=== PATIENT | male | born 1970 | race Caucasian/White ===

== ENCOUNTER 2024-12-17 07:13 | Day surgery (SDC) | payer OTHER, SELFPAY ==
[2024-12-17] VITALS (17 sets, daily range): BP systolic 108–133; BP diastolic 67–91; PULSE 79–108; RESP 14–16; TEMP 36.1–36.2; O2SAT 93–97; BMI 32.5
--- NOTE | 2024-12-17 08:08 | W.PM.H&PU ---
History & Physical Update History & Physical Update H&P Reviewed and patient assessed: No changes noted
[2024-12-17] MEDS: SODIUM CHLORIDE 0.9 % (FLUSH) 10 ML SYRINGE IVF (08:17)
[2024-12-17] MEDS: LACTATED RINGERS 1000 ML 1,000 ML 100 ML IV (08:20)
[2024-12-17] MEDS: fentaNYL 100 MCG/2 ML inj IVP (08:21)
[2024-12-17] MEDS: MIDAZOLAM HCL 1 MG/ML inj IVP (08:21)
--- NOTE | 2024-12-17 08:22 | SUR.PREOP ---
TIME?OUT:?0821 PT/RN/MDA?VERIFICATION?OF?SURGICAL?SITE,?PROCEDURE,?AND?CONSENT OBTAINED?PRIOR?TO?INVASIVE?PROCEDURE.
--- NOTE | 2024-12-17 08:31 | P.NB_ITS ---
Nerve Block Nerve Block Time Seen by Provider: 08:24 Date Seen: 12/17/24 Type of block requested by surgeon for post-operative analgesia: supraclavicular Side: right Time out performed: Yes Verification of patient name: Yes Verification of date of : Yes Site marking: site marked Name of person performing procedure: Alexandro Continuous monitoring Was continuous monitoring of O2 sat, B/P, air sampling and monitoring, recorded every 15 minutes?: Yes Procedure Checklist: sterile prep, needles and gloves Ultrasound guided. Images saved: Yes Medications given in 5ml increments after negative aspiration: Ropivicaine %: 0.5 mL: 20 Needle gauge: 22 Precedex (mcg): 25 Patient tolerated procedure well: Yes Block Charges Block Charge (with Pro Fee): Brachial Plexus Use of Ultrasound Machine for Block: Yes- US Guidance/pain block
--- NOTE | 2024-12-17 08:35 | W.ANESCHARGE ---
Anesthesia Charges Start Date/Time Anesthesia Start Date: 12/17/24 Anesthesia Start Time: 08:47 Stop Date/Time Anesthesia Stop Date: 12/17/24 Anesthesia Stop Time: 10:20 Coding CPT Codes CPT Codes: ANESTH SURGERY OF SHOULDER - 76429 ([id number]) P2 - PATIENT W/MILD SYST DISEASE, QK - LABORER BRUSH CLEARING 2-4 CNCRNT ANES PROC, QX - LEAD PROGRAMMER ANALYST SVC W/ MD MED DIRECTION
--- NOTE | 2024-12-17 08:35 | P.ANES_ITS ---
Anesthesia Charges Start Date/Time Anesthesia Start Date: 12/17/24 Anesthesia Start Time: 08:47 Stop Date/Time Anesthesia Stop Date: 12/17/24 Anesthesia Stop Time: 10:20 Coding CPT Codes CPT Codes: ANESTH SURGERY OF SHOULDER - 95751 ([id number]) P2 - PATIENT W/MILD SYST DISEASE, QK - CNC LATHE PROGRAMMER 2-4 CNCRNT ANES PROC, QX - RUBBER TESTER SVC W/ MD MED DIRECTION
[2024-12-17] MEDS: CEFAZOLIN 1 GM inj IVP (09:18)
[2024-12-17] MEDS: EPINEPHrine 1 MG in SODIUM CHLORIDE IRRIG SOLUTION 3,000 ML 3001 MG IRRIGATION ×4 (09:24→09:54)
--- NOTE | 2024-12-17 09:35 | SUR.OPER ---
PATIENT QUESTIONS ANSWERED SATISFACTORILY PREOPERATIVELY. PATIENT BROUGHT TO OR #2 PER CART FOLLOWING THE BLOCK. Patient positioned supine on OR #2 bed for the intubation.? Perioperative team wrapped the left arm in a neutral position on the pt. abdomen with the drawsheet. Right arm elevated on an IV pole in a padded strap. Final approval of positioning by surgeon. CONTINUOUS IRRIGATION OF THE RIGHT SHOULDER WITH MIXTURE OF 3000 NACL AND 1mg OF EPINEPHRINE DURING PROCEDURE.
--- NOTE | 2024-12-17 10:24 | PM.ORPRC ---
Procedure Note Date of procedure: 12/17/24 Procedure: PREOPERATIVE DIAGNOSES: 1. Right shoulder rotator cuff tear. 2. Right shoulder anterior and superior labral tearing POSTOPERATIVE DIAGNOSES: 1. Right shoulder rotator cuff tear. 2. Right shoulder anterior and superior labral tearing NAME OF OPERATION: 1. Right shoulder arthroscopic rotator cuff repair. 2. Right shoulder arthroscopic limited glenohumeral debridement SURGEON: Prem Nagel MD CABLE SPOOLER: Kirk Nugent PA-C. Of note, a skilled loan officer assistant was critical for this case to aide in patient positioning, suture manipulation, arm positioning, instrument positioning, and closure. ANESTHESIA: General plus preoperative supraclavicular block. EBL: 25 mL IMPLANTS: Arthrex 4.75 mm BioComposite SwiveLock suture anchor (x2) COMPLICATIONS: None evident INDICATIONS: The patient is a pleasant, 54-year-old male who has experienced right shoulder pain that has been increasing in recent time. Physical exam and imaging were consistent with a rotator cuff tear. Given their findings, as well as the weakness and pain, and inadequate response to nonoperative management, recommendation was made for surgery. FINDINGS: Exam under anesthesia revealed stable shoulder with excellent range of motion. The diagnostic arthroscopy revealed healthy chondral surfaces of the glenohumeral joint. The Subscapularis tendon was intact and with a healthy attachment. The long head of the biceps tendon was intact. The superior rotator cuff tendon was found to be torn and high-grade partial-thickness manner as a blunt probe easily penetrated through the bursal side of the rotator cuff/supraspinatus. The labrum was degeneratively frayed in the anterior and superior aspects. No loose bodies were identified within the pouch or subscapularis recess. PROCEDURE: Following a thorough discussion of risks, benefits, and alternatives, consent was obtained and the right shoulder was marked. The patient was brought to the operating room and placed supine on the operating table. Induction of anesthesia was completed after preoperative supraclavicular block was administered in preop holding. Appropriate time out was performed identifying proper patient, site, and procedure. 2 g IV Ancef was administered within 1 hour of incision preoperatively. The right upper extremity was prepped and draped in the appropriate sterile fashion using ChloraPrep prep. This was after the patient was positioned in the beach chair with their head in neutral alignment and all bony prominences well padded. The shoulder was insufflated with 20mL of normal saline via an 18g spinal needle from a posterior approach. An 11 blade skin incision allowed a blunt trochar to be inserted and diagnostic arthroscopy to be performed with the findings as noted above. An anterior portal was established with an outside in technique. This allowed the probe to be inserted and confirm the diagnostic arthroscopic findings. The shaver was then inserted and allowed debridement of the anterior and superior labrum. Following this, the upper border subscapularis was probed and found to be stable Thereafter, the subacromial space was entered. Here, [a complete bursectomy was performed with a combination of radiofrequency ablator and the shaver. Further inspection of the supraspinatus and infraspinatus rotator cuff was performed. This identified the tear as noted above. The margins of the tear were debrided, and the greater tuberosity was debrided with a combination of the apollo cautery, shaver, and bur on reverse setting. . After gentle decortication, single FiberTape suture was passed in a horizontal mattress fashion with the scorpion needle. Additionally, the eyelet sutures were passed independently allowing 4 tails to be passed through the rotator cuff tissue. It was brought to a single anchor further laterally. The rotator cuff showed excellent reapproximation of the greater tuberosity with good security upon probing. Prior to anchor water taxi driver removal, the eyelet sutures were tugged on for each anchor and found that the anchor had excellent stability within the bone. The shoulder was placed through range of motion and found to be stable. The rotator cuff was re-probed and found to be stable. Instruments were removed. Excess fluid was drained, closure performed with 4-0 Monocryl and Steri-Strips. Dressings were applied. Sling was applied. The patient was awoken from anesthesia and transferred to the PACU in stable condition. A skilled loan officer assistant was critical for this case to aid in patient positioning, limb positioning, skill to manipulate arthroscopic instruments and camera, suture management, patient safety, and closure. PLAN: 1. Elbow, forearm, wrist and digit range of motion as tolerated. 2. Encouraged ice. 3. Dilaudid for pain as needed. 4. Sling at all times except for ROM and showering. 5. Follow up with PA visit in 1-2 weeks for wound check. Initiate physical therapy following that visit for passive range of motion. Initiate active assisted range of motion at 2-3 weeks. May do pendulums now.
--- NOTE | 2024-12-17 10:29 | P.ANES_ITS ---
Anesthesia Charges Start Date/Time Anesthesia Start Date: 12/17/24 Anesthesia Start Time: 08:47 Stop Date/Time Anesthesia Stop Date: 12/17/24 Anesthesia Stop Time: 10:20 Coding CPT Codes CPT Codes: ANESTH SURGERY OF SHOULDER - 31657 ([id number]) P2 - PATIENT W/MILD SYST DISEASE, QK - PROPERTY UTILIZATION MANAGER 2-4 CNCRNT ANES PROC, QX - CLOTH BOLT BANDER SVC W/ MD MED DIRECTION
--- NOTE | 2024-12-17 10:29 | W.ANESCHARGE ---
Anesthesia Charges Start Date/Time Anesthesia Start Date: 12/17/24 Anesthesia Start Time: 08:47 Stop Date/Time Anesthesia Stop Date: 12/17/24 Anesthesia Stop Time: 10:20 Coding CPT Codes CPT Codes: ANESTH SURGERY OF SHOULDER - 81701 ([id number]) P2 - PATIENT W/MILD SYST DISEASE, QK - BLUEPRINT ASSEMBLER 2-4 CNCRNT ANES PROC, QX - CERTIFIED FIRST ASSISTANT SVC W/ MD MED DIRECTION
== END 2024-12-17 12:04 | disposition home or self-care (01) ==
PROVIDERS: Visit Provider Orthopaedic Surgery Sports Medicine
PROC: (CPT 29805; principal; 2024-12-17 08:30)
DX: M75.101 Unspecified rotator cuff tear or rupture of right shoulder, not specified as traumatic (principal); S43.431A Superior glenoid labrum lesion of right shoulder, initial encounter; G89.18 Other acute postprocedural pain
CPT/HCPCS: 29827; 29822; 01630; 64415; 76942; C1713; J0171; J0330; J0665; J0690; J2250; J2371; J2405; J2704; J2795; J3010; J3490; J7120; L3670

== ENCOUNTER 2025-03-25 07:06 | Outpatient (CLI) | payer OTHER, SELFPAY ==
--- NOTE | 2025-03-25 07:15 | MR_ITS ---
EXAM: MRI of the RIGHT SHOULDER WITHOUT CONTRAST CLINICAL HISTORY: Ongoing right shoulder pain. Evaluate for recurrent rotator cuff pathology. History of previous right shoulder surgery. Evaluate for biceps tendon tear. COMPARISONS: MRI 11/27/2024 and 07/13/2023. Plain radiographs 09/02/2022. TECHNICAL: MRI sequences of the right shoulder: Axials: PD, T2 Coronals: PD, STIR, T2 Sagittals: PD, T2 SEDATION: None CONTRAST: None FINDINGS: Bones: No fracture or suspicious bone marrow signal abnormality. Coracoacromial arch: Acromion: No os acromiale. Type I-II acromion. Acromioclavicular joint: Surgical changes status post distal clavicular resection are suspected. Coracoclavicular ligament: The coracoclavicular ligament is intact. Rotator cuff muscles/tendons: Supraspinatus: Surgical changes status post rotator cuff repair and repair. The supraspinatus tendon is within normal postoperative limits without evidence of recurrent tendon tear. No muscular atrophy. Infraspinatus: The infraspinatus tendon is intact. Mild infraspinatus muscular atrophy, unchanged compared to previous MRI 11/27/2024. Teres minor: The teres minor tendon and muscle are intact. Subscapularis: The subscapularis tendon and muscle are intact. Labrum and glenohumeral joint: Type II SLAP tear, also present on previous MRI 11/27/2024; correlate with surgical history. Physiologic amount of joint fluid. No discrete chondral defect or subchondral bone marrow edema/cystic change is seen. There is edema-like signal within and thickening of the inferior glenohumeral ligament/glenohumeral joint capsule. Proximal biceps tendon, long head and short heads: The long and short heads of the proximal biceps tendon are intact. Bursae: Subacromial/subdeltoid: Small amount of fluid within the subacromial/subdeltoid bursa. Subcoracoid: No convincing subcoracoid bursal thickening/bursitis. Benign fatty infiltration within the anterior portion of the deltoid muscle, unchanged dating back to MRI 07/13/2023. IMPRESSION: 1. Surgical changes status post rotator cuff repair of the supraspinatus tendon and suspected distal clavicular resection; correlate with surgical history. 2. The supraspinatus tendon is within normal postoperative limits without evidence of recurrent tendon tear. No supraspinatus muscular atrophy. 3. Mild infraspinatus muscular atrophy without infraspinatus tendon tear, unchanged compared to previous MRI 11/27/2024. 4. Edema-like signal within and thickening of the inferior glenohumeral ligament/glenohumeral joint capsule are findings associated with adhesive capsulitis in the appropriate clinical setting but could reflect post surgical change given that surgery was performed less than 4 months ago; correlate with clinical and surgical history. 5. Type II SLAP tear, also present on previous MRI 11/27/2024; correlate with surgical history. 6. Small amount of fluid within the subacromial/subdeltoid bursa. RCB Electronically signed on 03/25/2025 10:36:00 AM by Deandre Torres M.D.
== END 2025-03-25 07:07 | disposition home or self-care (01) ==
PROVIDERS: Visit Provider Orthopaedic Surgery Sports Medicine
DX: M25.511 Pain in right shoulder (principal); M75.101 Unspecified rotator cuff tear or rupture of right shoulder, not specified as traumatic; S46.211A Strain of muscle, fascia and tendon of other parts of biceps, right arm, initial encounter; S43.431A Superior glenoid labrum lesion of right shoulder, initial encounter; Z98.890 Other specified postprocedural states
CPT/HCPCS: 73221

== ENCOUNTER 2025-05-27 10:10 | Day surgery (SDC) | payer OTHER, SELFPAY ==
[2025-05-27] VITALS (14 sets, daily range): BP systolic 115–144; BP diastolic 75–86; PULSE 67–105; RESP 12–17; TEMP 35.8–36.4; O2SAT 91–98; BMI 32.5
[2025-05-27] MEDS: LACTATED RINGERS 1000 ML 1,000 ML 100 ML IV ×2 (10:10→13:16)
--- NOTE | 2025-05-27 10:31 | W.PM.H&PU ---
History & Physical Update History & Physical Update H&P Reviewed and patient assessed: No changes noted
[2025-05-27] MEDS: SODIUM CHLORIDE 0.9 % (FLUSH) 10 ML SYRINGE IVF (11:00)
[2025-05-27] MEDS: MIDAZOLAM HCL 1 MG/ML inj IVP (11:45)
--- NOTE | 2025-05-27 11:47 | SUR.PREOP ---
TIME?OUT:?1145 PT/RN/MDA?VERIFICATION?OF?SURGICAL?SITE,?PROCEDURE,?AND?CONSENT OBTAINED?PRIOR?TO?INVASIVE?PROCEDURE.
--- NOTE | 2025-05-27 12:14 | W.PM.NB ---
Nerve Block Nerve Block Time Seen by Provider: 11:40 Date Seen: 05/27/25 Type of block requested by surgeon for post-operative analgesia: supraclavicular Side: right Time out performed: Yes Verification of patient name: Yes Verification of date of : Yes Site marking: site marked Name of person performing procedure: Barry Sherman Continuous monitoring Was continuous monitoring of O2 sat, B/P, dot compliance specialist, recorded every 15 minutes?: Yes Procedure Checklist: sterile prep, needles and gloves Ultrasound guided. Images saved: Yes Medications given in 5ml increments after negative aspiration: Ropivicaine %: 0.5 mL: 15 Needle gauge: 20 Precedex (mcg): 25 Patient tolerated procedure well: Yes Additional comments: Injected in 5 mL increments after negative aspiration Block Charges Block Charge (with Pro Fee): Brachial Plexus Use of Ultrasound Machine for Block: Yes- US Guidance/pain block
[2025-05-27] MEDS: EPINEPHrine 1 MG in SODIUM CHLORIDE IRRIG SOLUTION 3,000 ML 3001 MG IRRIGATION (12:25)
--- NOTE | 2025-05-27 12:56 | PM.ORPRC ---
Procedure Note Date of procedure: 05/27/25 Procedure: PREOPERATIVE DIAGNOSES: 1. Right shoulder AC joint osteoarthritis, primary, severe POSTOPERATIVE DIAGNOSES: 1. Right shoulder AC joint osteoarthritis, primary, severe NAME OF OPERATION: 1. Right shoulder arthroscopic distal clavicle excision. SURGEON: Prem Nagel MD OUTPATIENT CODING SPECIALIST: George HARDY. Of note, an marketing support assistant was critical for this case to aide in patient positioning, suture manipulation, arm positioning, instrument positioning, and closure. ANESTHESIA: General plus preoperative supraclavicular block. IMPLANTS: None COMPLICATIONS: None evident INDICATIONS: The patient is a pleasant, 55-year-old male who has experienced right shoulder pain that has been increasing in recent time. Physical exam and imaging were consistent with AC arthrosis. Given their findings, as well as the pain, and inadequate response to nonoperative management, recommendation was made for surgery. FINDINGS: Exam under anesthesia revealed stable shoulder with excellent range of motion. The diagnostic arthroscopy revealed healthy chondral surfaces of the glenohumeral joint. The Subscapularis tendon was intact with healthy attachment. The long head of the biceps tendon was intact. The labrum showed a middle glenohumeral type variant but no clear hemorrhagic torn tissue in the cleft at the biceps origin. There was a they will of labral tissue over the superior and anterior glenoid otherwise. The rotator cuff tendon was found to be intact with a normal sail sign and no evidence of partial-thickness or full-thickness tearing. The labrum was intact and healthy without evidence of degenerative tearing or fraying. No loose bodies were identified within the pouch or subscapularis recess. PROCEDURE: Following a thorough discussion of risks, benefits, and alternatives, consent was obtained and the right shoulder was marked. The patient was brought to the operating room and placed supine on the operating table. Induction of anesthesia was completed after preoperative supraclavicular block was administered in preop holding. Appropriate time out was performed identifying proper patient, site, and procedure. 2 g IV Ancef was administered within 1 hour of incision preoperatively. The right upper extremity was prepped and draped in the appropriate sterile fashion using ChloraPrep prep. This was after the patient was positioned in the beach chair with their head in neutral alignment and all bony prominences well padded. The shoulder was insufflated with 20mL of normal saline via an 18g spinal needle from a posterior approach. An 11 blade skin incision allowed a blunt trochar to be inserted and diagnostic arthroscopy to be performed with the findings as noted above. An anterior portal was established with an outside in technique. This allowed the probe to be inserted and confirm the diagnostic arthroscopic findings. We then went into the subacromial space. This revealed moderate bursitis and again a hypertrophied AC joint capsule. The shaver and Weare cautery device were then inserted and allowed debridement of the subacromial bursa/subdeltoid bursa. Following this, 5.5 mm bur was then utilized for distal clavicle excision removing approximately 8 mm of distal clavicle. The camera was visualized within the AC joint space and found that the bone was completely removed from the more caudal to the more cephalad position confirming release/excision while sparing the superior and posterior capsule. Thereafter, the shaver was reinserted into the subacromial space and all remaining bony debris was excised. The supraspinatus rotator cuff was probed and found be otherwise intact. This was also assessed from the articular side and found to be intact. Instruments removed, excess fluid was drained, closure performed with 4 Monocryl and Steri-Strips. Dressings were applied. Sling was applied. The patient was awoken from anesthesia and transferred to the PACU in stable condition. PLAN: 1. Elbow, forearm, wrist and digit range of motion as tolerated. 2. Encouraged ice. 3. Hydromorphone for pain as needed. 4. Sling at all times except for ROM and showering. 5. Follow up with me in 1-2 weeks for wound check.
--- NOTE | 2025-05-27 13:19 | W.ANESCHARGE ---
Anesthesia Charges Start Date/Time Anesthesia Start Date: 05/27/25 Anesthesia Start Time: 11:54 Stop Date/Time Anesthesia Stop Date: 05/27/25 Anesthesia Stop Time: 13:09 Coding CPT Codes CPT Codes: ANESTH SURGERY OF SHOULDER - 31484 ([id number]) QZ - JAVA J2EE TECHNICAL LEAD SVC W/O LEAD COATER BY , P2 - PATIENT W/MILD SYST DISEASE
--- NOTE | 2025-05-27 13:19 | P.ANES_ITS ---
Anesthesia Charges Start Date/Time Anesthesia Start Date: 05/27/25 Anesthesia Start Time: 11:54 Stop Date/Time Anesthesia Stop Date: 05/27/25 Anesthesia Stop Time: 13:09 Coding CPT Codes CPT Codes: ANESTH SURGERY OF SHOULDER - 14486 ([id number]) QZ - INSURANCE SALESMAN SVC W/O MANDREL MAKER BY , P2 - PATIENT W/MILD SYST DISEASE
--- NOTE | 2025-05-27 13:38 | SUR.PHASEI ---
patient met discharge criteria per anesthesia
[2025-05-27] MEDS: ACETAMINOPHEN 500 MG TABLET PO (14:18)
[2025-05-27] MEDS: IBUPROFEN 200 MG TABLET 600 MG PO (14:18)
--- NOTE | 2025-05-27 14:46 | SUR.PHASEII ---
1420: Patient ambulatory with stand by assist to restroom. Pt voided. States his headache is slightly improving.
== END 2025-05-27 14:47 | disposition home or self-care (01) ==
LOC: OR 10:11
PROVIDERS: Visit Provider Orthopaedic Surgery Sports Medicine
PROC: (CPT 29805; principal; 2025-05-27 12:15)
DX: M19.011 Primary osteoarthritis, right shoulder (principal); G89.18 Other acute postprocedural pain
CPT/HCPCS: 29824; 29822; 01630; 64415; 76942; A9270; J0169; J0330; J0690; J1100; J2250; J2405; J3010; J3490; J7120; L3670